=== PATIENT | female | born 1970 | race Caucasian/White ===

== ENCOUNTER 2020-10-13 07:33 | Day surgery (SDC) | payer OTHER, SELFPAY ==
[2020-10-07 15:56] VITALS: BMI 29.2
--- NOTE | 2020-10-12 08:57 | HO.ANESPROP2 ---
HPI - Anesthesia Eval Consult details Narrative: 50yo F for Colonoscopy [facility]LY [facility] Past Medical History Medical History (Updated 10/07/20 @ 15:50 by Ema West) Arthritis GERD (gastroesophageal reflux disease) History of back pain Hx of migraines Surgical History Surgical History (Updated 10/07/20 @ 15:49 by Ema West) History of back surgery History of esophagogastroduodenoscopy (EGD) S/P lumpectomy, left breast Social History Social History (Updated 10/07/20 @ 15:56 by Ema West) Alcohol intake: never Smoking Status: Current every day smoker Cigarettes Per Day: 10 Years Smoked: 30 Use of substances other than those prescribed or required for medical reasons: No Advance Directives: No Advance Directives Information Provided: No Advance Directives on File: No Meds Allergies Allergy/AdvReac Type Severity Reaction Status Date / Time oxycodone [From Percocet] Allergy Nausea and Verified 10/13/20 07:49 Vomiting Home Medications Medication Instructions Recorded Confirmed Last Taken Type ouemcrdccw-rmudaotkixxip-ornc 1 cap PO Q6H PRN 10/07/20 10/07/20 Unknown History [Fioricet] cholecalciferol (vitamin D3) 50 mcg PO DAILY 10/07/20 10/07/20 Unknown History [Vitamin D3] diazepam [Valium] 5 mg PO BID PRN 10/07/20 10/07/20 Unknown History multivitamin 1 tab PO DAILY 10/07/20 10/07/20 Unknown History omeprazole 20 mg PO DAILY 10/07/20 10/07/20 10/13/20 07:00 History sumatriptan succinate 1 tab PO DIRECTED 10/07/20 10/07/20 Unknown History Exam Exam Date and Time: October 12, 2020 0857 Height,Weight and Vital Signs: Height 5 ft 4 in Weight 77.111 kg Assessment and Plan Assessment Anesthesia Assessment: Chart Reviewed
[2020-10-13 08:08] VITALS: BP 105/48; PULSE 70; RESP 18; TEMP 36.7; O2SAT 97
[2020-10-13] MEDS: Lactated Ringers 1,000 ML 100 ML IVCONT (08:18)
--- NOTE | 2020-10-13 08:45 | MHC.SHP ---
Pre-Procedural Eval Section A The patient is an INPATIENT: No Changes since office visit: No Cold of Flu in the past 2 weeks, No New Medical Problems, No Changes in Medication and No Patient answered all questions The History & Physical has been completed within 30 days and I have reviewed it.: Yes Section B Chief Complaint: screening Allergies: Allergies Allergy/AdvReac Type Severity Reaction Status Date / Time oxycodone [From Percocet] Allergy Nausea and Verified 10/13/20 07:49 Vomiting Plan I have reviewed the history and physical and performed a pertinent physical examination on my patient. No changes have occurred unless specified.
[2020-10-13 09:13] VITALS: BP 95/37; PULSE 64; RESP 14; TEMP 36.8; O2SAT 96
--- NOTE | 2020-10-13 09:14 | PM.OP ---
Brief Operative Note Date of Service: 10/13/20 Pre-op diagnosis: screening Post-op diagnosis: same (colon polyp) Procedure: colonoscopy Surgeon: Andriy Ledesma Estimated blood loss (mL): 2 Pathology: other (polyp 80 cm) Condition: stable Disposition: PACU
[2020-10-13 09:18] VITALS: BP 91/43; PULSE 61; RESP 16; O2SAT 97
[2020-10-13 09:28] VITALS: BP 101/51; PULSE 62; RESP 16; O2SAT 98
--- NOTE | 2020-10-13 09:30 | OP_ITS ---
SURGEON: Andriy Ledesma MD INDICATIONS: Colon cancer screening. PREOPERATIVE DIAGNOSIS: POSTOPERATIVE DIAGNOSIS: PROCEDURE PERFORMED: Colonoscopy to the terminal ileum with biopsy. ESTIMATED BLOOD LOSS: COMPLICATIONS: ANESTHESIA: ASSISTANTS: SPECIMENS: MEDICATIONS: Monitored anesthesia care. DESCRIPTION OF PROCEDURE: History and physical performed. The risks and benefits of the procedure were explained to the patient. Informed consent was obtained. The patient was placed in the left lateral decubitus position. A digital rectal exam was performed and was found to be normal. The Olympus pediatric video colonoscope was introduced into the rectum and advanced to the cecum without difficulty. The cecum was identified by transillumination, palpation, and identification of the ileocecal valve. Examination was performed and the scope was removed. She tolerated the procedure well and was returned to recovery room in stable condition. FINDINGS: The terminal ileum was examined and appeared normal. The visualized colonic mucosa was normal. The quality of the prep was good. A single polyp measuring less than 5 mm was removed with biopsy forceps at 80 cm from the anal verge. No other polyps were identified. There was mild sigmoid diverticulosis. Retroflexed examination was normal. IMPRESSION: Colon polyp. RECOMMENDATION: Follow up the biopsy results. MD SOFYA Mallory/JOSE R / [id number]
[2020-10-13 09:38] VITALS: BP 114/62; PULSE 62; RESP 18; O2SAT 99
== END 2020-10-13 10:19 | disposition home or self-care (01) ==
PROVIDERS: PCP Internal Medicine; Visit Provider Internal Medicine Gastroenterology
PROC: 0DJD8ZZ Inspection of Lower Intestinal Tract, Via Natural or Artificial Opening Endoscopic (ICD-10-PCS; CPT 45378; principal; 2020-10-13 08:30)
DX: Z12.11 Encounter for screening for malignant neoplasm of colon (principal); Z83.71 Family history of colonic polyps; D12.4 Benign neoplasm of descending colon; K57.30 Diverticulosis of large intestine without perforation or abscess without bleeding; K21.9 Gastro-esophageal reflux disease without esophagitis; F17.210 Nicotine dependence, cigarettes, uncomplicated; Z79.899 Other long term (current) drug therapy
CPT/HCPCS: 45380; 88305

== ENCOUNTER 2024-05-06 14:46 | Outpatient (AMB) | payer OTHER, SELFPAY ==
--- NOTE | 2024-05-06 14:57 | A.SPINEOV_ITS ---
Intake Visit Reasons: LBP/painful to walk Intake Note: Ms. Goode is here today c/o low back pain that makes it painful to walk. 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 We did a recurrent herniated diskectomy on her in 2021. That was on the left at L4-5, her original herniation was at L4-5 at 2019. Unfortunately, about a year ago she started to develop back pain and pain shooting down into her hips in into her thighs and calves. It has a very heavy feeling when she walks. Her feet will go numb. She also has a component of back pain. She tried the mgzl-thj-lxxdaqf Tylenol/Motrin regimen with no effect. She also tried Valium but that does not work any longer either. The symptoms only seem to be getting worse. She may have a slightly weak right dorsiflexion on my exam but otherwise strength is reflexes are intact. I suspect she has a recurrent herniated disc and would like to get a lumbar MRI with and without kei 0 to evaluate this. Total amount of time spent in this visit was 20 minutes in discussion of symptoms, ordering lumbar MRI and subsequent plan of care Juan Miguel Pate MD,PhD [facility] Orders: Orders MR lumbar spine wo/w con Today M51.26 - Other intervertebral disc displacement, lumbar region Coding Level of Care Code Est Pt Level 3 (41925) Diagnoses Lumbar disc herniation M51.26
== END 2024-05-06 15:48 | disposition home or self-care (01) ==
PROVIDERS: PCP Internal Medicine; Visit Provider Physician Assistant
DX: M51.26 Other intervertebral disc displacement, lumbar region (principal)
CPT/HCPCS: 99213

== ENCOUNTER → 2024-05-06 14:46 | Outpatient (BNVA) | payer OTHER, SELFPAY | PROVIDERS: PCP Internal Medicine; Visit Provider Physician Assistant ==

== ENCOUNTER 2024-06-14 14:28 | Outpatient (AMB) | payer OTHER, SELFPAY ==
--- NOTE | 2024-06-14 14:36 | A.SPINEOV_ITS ---
Intake Visit Reasons: MRI f/u Intake Note: Ms. Rupa Box is here to F/u on MRI results. Automation And Controls Supervisor Required: No Allergies oxycodone [From Percocet] Allergy (Verified 10/13/20 07:49) Nausea and Vomiting Assessment & Plan Assessment & Plan (1) Lumbar degenerative disc disease: Code(s): M51.369 - Other intervertebral disc degeneration, lumbar region without mention of lumbar back pain or lower extremity pain Category: Medical Plan Mrs Rupa Box is well known to us from previous operations including a diskectomy at L4-5 two times, the last being in 2021, and the 1st being 2019 I believe. She did well after those surgeries but has had recurrent back pain riaz r since. Please see my last note for the specifics of her pain but primarily it centralized low back pain. We ordered a new MRI which was done at [facility] and this shows that she has severe degenerative disc disease and collapse at L4-5 with endplate edema. There is no evidence of residual nerve compression. There is some mild degenerative changes at other places but nothing as significant as L4-5. We believe this to be part of the source of her back pain. I sat down and had a lengthy discussion with her about the natural history of back pain. Traditionally this is something that Dr. Pate would treat with lumbar fusion. I showed him the imaging any believes an L4-5 oblique lumbar interbody fusion would be the best surgery of choice. However, she has had no conservative treatment to this point and we know that the patient insurance health [place] will not allow us to do surgery without at least an attempt at conservative management. Therefore I gave her a referral to PT which she is to continue as long as she can tolerate possibly up to 6 weeks would be ideal. I told her to start with Tylenol and Motrin as well and see how it goes. We can reassess. She has no interest in injections as she has had 1 in the past and only made her worse. She quit smoking so this should not be an issue for the surgery either. I will see her back in 6 weeks. Total amount of time spent in this visit was 20 minutes in discussion of symptoms, lumbar MRI imaging results and subsequent plan of care Juan Miguel Pate MD,PhD [facility] Orders: Orders PT Evaluation and Treatment Today M51.26 - Other intervertebral disc displacement, lumbar region XR lumbar spine 4V min Today M51.26 - Other intervertebral disc displacement, lumbar region Coding Level of Care Code Est Pt Level 3 (16664) Diagnoses Lumbar degenerative disc disease M51.369
== END 2024-06-14 16:06 | disposition home or self-care (01) ==
PROVIDERS: PCP Physician Assistant; Visit Provider Physician Assistant
DX: M51.369 Other intervertebral disc degeneration, lumbar region without mention of lumbar back pain or lower extremity pain (principal)
CPT/HCPCS: 99213

== ENCOUNTER 2024-06-14 14:28 | Outpatient (REF) | payer OTHER, SELFPAY | END 2024-06-14 14:29 | disposition home or self-care (01) | LOC: HO.HOSX 14:28 | PROVIDERS: PCP Physician Assistant; Visit Provider Physician Assistant | DX: Z13.89 Encounter for screening for other disorder (principal) ==

== ENCOUNTER 2024-07-26 13:16 | Outpatient (AMB) | payer OTHER, SELFPAY ==
--- NOTE | 2024-07-26 13:39 | HO.SPINEOV ---
Intake Visit Reasons: 6 weeks f/up with xrays Intake Note: Ms. 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 As you know she underwent 2 lumbar microdiskectomy but returned with severe low back pain. An MRI shows severe lumbar degenerative disc disease L4-5 with endplate degeneration. She will be a good candidate for an oblique lumbar interbody fusion. The patient takes Motrin pain control and is still able to do most tasks in her life including taking care of family members. A new bed allows her to sleep better. Physical therapy provided mild relief. We had a discussion about surgery. I told the patient is a 65% guarantee that the back pain will respond to the surgery. I also told her that I reserve a fusion option only for patients that exhausted all conservative management and can not longer tolerate the pain. She does not seem to be in the letter category and therefore decided we will hold off on surgery and she will return to my clinic if the symptoms are becoming unbearable. I spent 25 minutes in his consult to review imaging and to discuss plan of care. Andres Pate MD, PhD Spine Fellowship Trained Neurosurgeon Director, [facility] Coding Level of Care Code Est Pt Level 3 (28528) Diagnoses Lumbar degenerative disc disease M51.369
== END 2024-07-26 14:33 | disposition home or self-care (01) ==
PROVIDERS: PCP Physician Assistant; Visit Provider Neurological Surgery
DX: M51.369 Other intervertebral disc degeneration, lumbar region without mention of lumbar back pain or lower extremity pain (principal)
CPT/HCPCS: 99213

== ENCOUNTER → 2024-07-26 13:16 | Outpatient (BNVA) | payer OTHER, SELFPAY | PROVIDERS: PCP Physician Assistant; Visit Provider Neurological Surgery ==

== ENCOUNTER 2024-10-25 14:24 | Outpatient (AMB) | payer OTHER, SELFPAY ==
--- NOTE | 2024-10-25 14:26 | HO.SPINEOV ---
Vital Signs 10/25/24 14:32 Height 5 ft 4 in Weight 163 lb BMI 28.0 Intake Visit Reasons: increasing pain Intake Note: Ms. Rupa Box is here today c/o increase low back pain and leg discomfort. 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
[2024-10-25 14:32] VITALS: BMI 28.0
--- NOTE | 2024-10-25 14:48 | HO.SPINEOV ---
Vital Signs 10/25/24 14:32 Height 5 ft 4 in Weight 163 lb BMI 28.0 Intake Visit Reasons: increasing pain Allergies oxycodone [From Percocet] Allergy (Verified 10/25/24 14:33) Nausea and Vomiting Physical Exam Vital Signs: BMI result Body Mass Index 28.0 Assessment & Plan Assessment & Plan (1) Lumbar degenerative disc disease: Code(s): M51.369 - Other intervertebral disc degeneration, lumbar region without mention of lumbar back pain or lower extremity pain Category: Medical Plan Dear colleague, On 10/25/2024, I saw for follow-up Patrizia Box. She continues to suffering from daily ybbtzhqj-eo-clcgrp back pain most likely related to the severe degeneration at L4-L5. We discussed the lumbar fusion to treat her symptoms in the past. She comes in with several questions about timing of surgery and if waiting would interfere with the results. I told her that the timing for surgery is dependent on the patient herself and her symptoms. Currently, she can still manage her symptoms. Anti-inflammatory drugs do alleviate her symptoms to a certain degree. Her diabetes is well controlled. She takes Mounjaro and I told her that as long as the diabetes is well controlled, her surgical outcome should not be negatively impacted. All questions were answered satisfactorily and she will come back if she wants surgery. I spent 25 minutes in his consult for answering questions and discussing plan of care. Andres Pate MD, PhD Spine Fellowship Trained Neurosurgeon Director, [facility] Coding Level of Care Code Est Pt Level 3 (12153) Diagnoses Lumbar degenerative disc disease M51.369
--- OUTSIDE RECORDS SUMMARY | 2024-10-25 16:06 | XMS_ITS | Patient Health Record ---
Author Organization [facility] Address [address] [place] [address] Care Team Providers Care Technical Inspector Name Role Phone Iggy Pendleton MD Primary Care Provider Andriy Jamil Jr Unavailable Allergies Allergen (clinical drug ingredient) Drug/Non Drug Allergy documented on EMR Reaction Allergy Type Onset Date Status acetaminophen / oxycodone Percocet Unknown Drug Allergy Active Reason For Referral No Information Medications Medication SIG (Take, Route, Frequency, Duration) Notes Start Date End Date Status Alive Multi-Vitamin Active Omeprazole 20 MG 1 capsule Orally Onc e a day Active Fioricet PRN Active Vitamin D Active Valium PRN Active MiraLax (colon prep) 8.3 ounce ((238) grams mixed with Gatorade or Crystal Light orally begin at 5:00 p.m. the day before the procedure for 1 day 09/21/2020 Active Immunizations Vaccine Route Administration Date Status Comme nts Influenza Unknown 07/08/2020 Administered Social History Tobacco Use: Social History Observation Description Date Details (start date - stop date) Current Smoker NA - NA Tobacco Use/Smoking Question Answer Notes Patient is a current smoker How often do you smoke cigarettes? every day How many cigarettes a day do you smoke? 11-20 How soon after you wake up d o you smoke your first cigarette? 6-30 minutes Are you interested in quitting? Thinking about q uitting Alcohol Screen Question Answer Notes Did you have a drink containing alcohol in the p ast year? No Points 0 Interpretation Negative Problems Problem Type SNOMED Code ICD Code Onset Dates Problem Status W/U Status Risk Notes Problem 563930172 Colon cancer screening (Z12.11) Active confirmed Problem 546162803 Gastroesophageal reflux disease without esophagitis (K21.9) Active confirmed Plan Of Treatment Future Test Test Name Order Date UPPER GI ENDOSCOPY 02/08/2018 COLONOSCOPY 09/21/2020 Insurance Providers Payer Name Payer Address Payer Phone Subscriber Number Group Number Insured Name Patient Relationship to Insured Coverage Start Date Coverage End Date [facility] [address] [address] [place] [phone] [id number] GOMEZ GONSALES Self - patient is the insured Medical (General) History Medical History History ICD Code migraine headaches back pain acid reflux Surgical History Surgery Date(Month/Year) lumpectomy, left breast - benign
== END 2024-10-25 14:52 | disposition home or self-care (01) ==
PROVIDERS: PCP Physician Assistant; Visit Provider Neurological Surgery
DX: M51.369 Other intervertebral disc degeneration, lumbar region without mention of lumbar back pain or lower extremity pain (principal)
CPT/HCPCS: 99213

== ENCOUNTER → 2024-10-25 14:24 | Outpatient (BNVA) | payer OTHER, SELFPAY | PROVIDERS: PCP Physician Assistant; Visit Provider Neurological Surgery ==

== ENCOUNTER 2024-12-04 11:47 | Day surgery (SDC) | payer OTHER, SELFPAY ==
--- OUTSIDE RECORDS SUMMARY | 2024-11-20 15:10 | XMS_ITS ---
Author Organization [facility] Address [address] [place] [address] Care Team Providers Care Newspaper Delivery Counselor Name Role Phone Kate Roger Primary Care Provider U Andriy Ruff Jr Unavailable [phone] Allergies Allergen (clinical drug ingredient) Drug/Non Drug Allergy documented on EMR Reaction Allergy Type Onset Date Status acetaminophen / oxycodone Percocet Unknown Drug Allergy Active REASON FOR VISIT Patient presents today for stomach pain, gurgily, after bm really hurts. Medications Medication SIG (Take, Route, Frequency, Duration) Notes Start Date End Date Status Mounjaro 2.5 MG/0.5ML INJECT 2.5 MG SUBCUTANEOUSLY EVERY WEEK, ROTATE INJECTION SITES DX: E11.9 T2DM Subcutaneous for 28 Days Active Ondansetron 4 MG Oral for 15 Days Active Ibuprofen 800 MG Oral for 30 Days prn Active Atorvastatin Calcium 10 MG Oral for 90 Days Active Fioricet PRN Active Vitamin D Active Valium PRN Active Immunizations Vaccine Route Administration Date Status Comme nts Influenza Unknown 11/20/2024 Refused Social History Tobacco Use: Social History Observation Description Date Details (start date - stop date) Never Smoker NA - NA Alcohol Screen Question Answer Notes Did you have a drink containing alcohol in the p ast year? No Points 0 Interpretation Negative Tobacco Control (Standard) Question Answer Notes Tobacco use: Nonsmoker Problems Problem Type SNOMED Code ICD Code Onset Dates Problem Status W/U Status Risk Notes Problem 801505322 Gastroesophageal reflux disease, unspecified whether esophagitis present (K21.9) Active confirmed Problem 271763707 Abnormal finding s on diagnostic imaging of other parts of digestive tract (R93.3) Active confirmed Problem 176560545 Long-term curren t use of high risk medication other than anticoagulant (Z79.899) Active confirmed Vital Signs Temperature 97.7 degrees Fahrenheit 11/21/19 25 Blood pressure systolic 001 mm Hg 11/21/19 25 Blood pressure diastolic 01 mm Hg 025 Height 64 in 11/20/2024 Weight 160.8 lbs 11/20/2024 BMI 27.6 kg/m2 11/20/2024 Encounters Encounter Location Date Provider Diagnosis [facility] [address] [place] [address] 11/20/2024 Andriy Ledesma Jr Gastroesophageal reflux disease, unspecified whether esophagitis present K21.9 ; Abnormal findings on diagnostic imaging of other parts of digestive tract R93.3 and Long-term current use of high risk medication other than anticoagulant Z79.899 Assessments Encounter Date Diagnosis (ICD Code) Assessment Notes Treatment Notes Treatment Clinical Notes Section Notes 11/20/2024 Gastroesophageal reflux disease, unspecified whether esophagitis present (ICD-10 - K21.9) We discussed her symptoms today. We discussed her laboratory findings and evaluation in the emergency department as well as her abnormal upper GI series. We have recommended further evaluation with upper endoscopy and colonoscopy because of her symptoms. We discussed risks and benefits of both procedures today. She understands these and agrees to proceed. She is advised to stop Mounjaro 1 week before the procedure. 11/20/2024 Abnormal findings on diagnostic imaging of other parts of digestive tract (ICD-10 - R93.3) We discussed her symptoms today. We discussed her laboratory findings and evaluation in the emergency department as well as her abnormal upper GI series. We have recommended further evaluation with upper endoscopy and colonoscopy because of her symptoms. We discussed risks and benefits of both procedures today. She understands these and agrees to proceed. She is advised to stop Mounjaro 1 week before the procedure. 11/20/2024 Long-term current use of high risk medication other than anticoagulant (ICD-10 - Z79.899) We discussed her symptoms today. We discussed her laboratory findings and evaluation in the emergency department as well as her abnormal upper GI series. We have recommended further evaluation with upper endoscopy and colonoscopy because of her symptoms. We discussed risks and benefits of both procedures today. She understands these and agrees to proceed. She is advised to stop Mounjaro 1 week before the procedure. 11/20/2024 Other Medicine safety - Filling your prescription material was printed We discussed her symptoms today. We discussed her laboratory findings and evaluation in the emergency department as well as her abnormal upper GI series. We have recommended further evaluation with upper endoscopy and colonoscopy because of her symptoms. We discussed risks and benefits of both procedures today. She understands these and agrees to proceed. She is advised to stop Mounjaro 1 week before the procedure. Plan Of Treatment Treatment Notes Assessment Notes Other Medicine safety - Fi lling your prescription material was printed Future Test Test Name Order Date UPPER GI ENDOSCOPY 11/20/2024 COLONOSCOPY 11/20/2024 Next Appt Details Follow Up: 1 Year, Reason: Provider Name:Andriy singleton , 12/04/2024 01:00:00 PM, [address] [place] [address], [phone], Progress Notes * GOMEZ GONSALES EDOB: 1970 (54 yo F)Acc No.[id number]:11/20/2024 Progress Notes Patient:?ANTWAN GONSALES Provider:?Andriy Ledesma MD :1970???Age:54 Y???Sex:Female D ate:11/20/2024 Address:[address] [place], [place] [id number] Pcp:Mansoor Randolph Subjective: * Chief Complaints: * ???1. Patient presents today for stomach pain, gurgily, after bm really hurts.. * HPI: ???New symptom(s):? Gomez is a pleasant 54-year-old woman seen today in consultation. She complains of abdominal discomfort which is generalized across the abdomen. There is associated clammy feeling, rectal urgency, and diaphoresis. She states she belches frequently. She has had diarrhea. She feels full all the time. She was evaluated in the emergency department because of the symptoms, which have been present since October 29. Evaluation at that time included lab work which is reviewed. She also had CT scanning which we also reviewed. This showed possible colitis involving the sigmoid colon. She has no prior history of colitis. She has had no rectal bleeding. She has no other change in her bowel habits. She has lost approximately 30 pounds since she has been on Mounjaro. She previously underwent colonoscopy in September 2020 with removal of a small tubular adenoma for which 5-year follow-up was recommended. She does have a family history of colon polyps and colon cancer. We reviewed this today. * ROS:?General/Constitutional:?Change in appetite?denies.?Fatigue?denies.?ENT:?Patient denies?difficulty swallowing.?Respiratory:?Patient denies?shortness of breath.?Cardiovascular:?Patient denies?chest pain.?Gastrointestinal:?Comments?See HPI for details.?Genitourinary:?Difficulty urinating?denies.?Incontinence?denies.?Musculoskeletal:?Patient denies?muscle aches.?Skin:?Patient denies?pruritis.?Neurologic:?Patient denies?low back pain.?Psychiatric:?Patient denies?mental or physical abuse.? * Medical History:?Migraine he adaches, Back pain, Acid reflux, type II diabetes. * Surgical History:?lumpectomy , left breast - benign , back surgery x 2 . * Family History:?Father: juan carlos bañuelos, diagnosed with HTN (hypertension), Colon polyps.?Mother: alive, diagnosed with HTN (hypertension).?Maternal Grand Father: , diagnosed with Colon cancer.? Denies family hx of liver ds.? Grandfather on mothers side with colon cance.r. * Social History:?Tobacco Use:?Tobacco Control (Standard)?Tobacco use:?Nonsmoker.?Drugs/Alcohol:?Alcohol Screen?Did you have a drink containing alcohol in the past year??No,?Points?0,?Interpretation?Negative.?Miscellaneous:?Marital status: . Occupation: sales. * Medications:?Taking Valium , Notes to Pharmacist: PRN, Taking Vitamin D , Taking Fioricet , Notes to Pharmacist: PRN, Taking Ondansetron 4 MG Tablet Disintegrating Oral , Taking Mounjaro 2.5 MG/0.5ML Solution Auto-injector INJECT 2.5 MG SUBCUTANEOUSLY EVERY WEEK, ROTATE INJECTION SITES DX: E11.9 T2DM Subcutaneous , Taking Ibuprofen 800 MG Tablet Oral , Notes to Pharmacist: prn, Taking Atorvastatin Calcium 10 MG Tablet Oral , Discontinued Omeprazole 20 MG Capsule Delayed Release 1 capsule Orally Once a day , Discontinued Alive Multi-Vitamin , Discontinued MiraLax (colon prep) 8.3 ounce ((238) grams mixed with Gatorade or Crystal Light orally begin at 5:00 p.m. the day before the procedure , Medication List reviewed and reconciled with the patient * Allergies:?Percocet. Objective: * Vitals:?Wt: 160.8 lbs, Ht: 6 4 in, BMI:27.6Index, BP: 001/01 mm Hg, Temp: 97.7, Wt-k.94. * Examination: ???General Examination: ?GENERAL APPEARANCE:?in no acute distress.?HEAD:?normocephalic.?EYES:?sclera non-icteric.?ORAL CAVITY:?mucosa moist.?NECK/THYROID:?no lymphadenopathy.?SKIN:?anicteric.?HEART:?S1, S2 normal, no murmurs.?LUNGS:?clear to auscultation bilaterally.?CHEST:?normal shape and expansion.?ABDOMEN:?soft, nontender, nondistended, bowel sounds present, no organomegaly .?EXTREMITIES:?no clubbing, cyanosis, or edema.?PSYCH:?cognitive function intact.? Assessment: * Assessment: 1.?Gastroesophageal reflux d isease, unspecified whether esophagitis present - K21.9 (Primary)???2.?Abnormal findings on diagnostic imaging of other parts of digestive tract - R93.3???3.?Long-term current use of high risk medication other than anticoagulant - Z79.899??? We discussed her symptoms to day. We discussed her laboratory findings and evaluation in the emergency department as well as her abnormal upper GI series. We have recommended further evaluation with upper endoscopy and colonoscopy because of her symptoms. We discussed risks and benefits of both procedures today. She understands these and agrees to proceed. She is advised to stop Mounjaro 1 week before the procedure. Plan: * Treatment: ?Procedure: COLONOSCOPY (Ordered for 11/20/2024)* sched for 12/04/24 at 1:00 pm macmiralax 2.?Abnormal findings on diagnostic imaging of other parts of digestive tract?Procedure: UPPER GI ENDOSCOPY (Ordered for 11/20/2024)* sched for 12/04/24 at 1:00 pm mac ?Procedure: COLONOSCOPY (Ordered for 11/20/2024)* sched for 12/04/24 at 1:00 pm macmiralax 3.?Long-term current use of high risk medication other than anticoagulant?Procedure: UPPER GI ENDOSCOPY (Ordered for 11/20/2024)* sched for 12/04/24 at 1:00 pm mac ?Procedure: COLONOSCOPY (Ordered for 11/20/2024)* sched for 12/04/24 at 1:00 pm macmiralax 4.?Others? Notes: Medicine safety - Filling your prescription material was printed?? * Immunizations:? Influenza (Not administered - Refused: Patient decision) * Procedure Codes:?3017F COLOR ECTAL CA SCREEN DOC REV, 1036F TOBACCO NON-USER, G8785 BP SCR NOT PRFRM REC REASON NOS * Preventive Medicine:? ??Counseling:?Care goal follow-up plan:?Above Normal BMI Follow-up?Dietary management education, guidance, and counseling,?BMI management provided?Yes.? * Follow Up:?1 Year * * Sign off status: Completed true * Provider:?Andriy Ledesma MD Date:?0 11/20/2024 Generated for Zofia ventura/Cleo/Shari on:?11/20/2024 03:10 PM EDT History and Physical Notes * HPI (History of Present Illness) Category Sub-Category Detail Notes Category Not es New symptom(s) Gomez is a pleasant 54-year-old woman seen today in consultation. She complains of abdominal discomfort which is generalized across the abdomen. There is associated clammy feeling, rectal urgency, and diaphoresis. She states she belches frequently. She has had diarrhea. She feels full all the time. She was evaluated in the emergency department because of the symptoms, which have been present since October 29. Evaluation at that time included lab work which is reviewed. She also had CT scanning which we also reviewed. This showed possible colitis involving the sigmoid colon. She has no prior history of colitis. She has had no rectal bleeding. She has no other change in her bowel habits. She has lost approximately 30 pounds since she has been on Mounjaro. She previously underwent colonoscopy in September 2020 with removal of a small tubular adenoma for which 5-year follow-up was recommended. She does have a family history of colon polyps and colon cancer. We reviewed this today. Examination Category Sub-Category Detail Notes Category Not es General Examination GENERAL APPEARANCE: in no acute di stress HEAD: normocephalic EYES: sclera non-icteric NECK/THYROID: no lymphadenopathy HEART: S1, S2 normal, no mu rmurs CHEST: normal shape and exp ansion LUNGS: clear to auscultatio n bilaterally ABDOMEN: soft, nontender, non distended, bowel sounds present, no organomegaly SKIN: anicteric EXTREMITIES: no clubbing, cyanosi s, or edema PSYCH: cognitive function i ntact ORAL CAVITY: mucosa moist
--- OUTSIDE RECORDS SUMMARY | 2024-11-20 15:10 | XMS_ITS ---
Author Organization [facility] Address [address] [place] [address] Care Team Providers Care Chocolate Finisher Operator Name Role Phone Kate Roger Primary Care Provider U Andriy Ruff Jr [phone] Encounters Encounter Location Date Provider Diagnosis [facility] [address] [place] [address] 11/18/2024 Andriy Ledesma Jr Plan Of Treatment Next Appt Details Provider Name:Andriy singleton Jr, 12/04/2024 01:00:00 PM, [address] [place] [address] , [place], [place], [phone], Progress Notes * GOMEZ GONSALES EDOB: 1970 (54 yo F)Acc No.[id number]:11/18/2024 Patient:?ANTWAN GONSALES :1970???Age:54 Y???Sex:Female Address:[address] [place], [address] * true * Date:? Generated for Zofia ventura/Cleo/eTransmitting on:?11/20/2024 03:10 PM EDT
--- OUTSIDE RECORDS SUMMARY | 2024-11-20 15:11 | XMS_ITS ---
Author Organization [facility] Address [address] [place] [address] Care Team Providers Care Acds Block 1 Operator Name Role Phone Kate Roger Primary Care Provider U trenton Ledesma Jr, Andriy Leyva REASON FOR VISIT Appointment Encounters Encounter Location Date Provider Diagnosis [facility] [address] [place] [phone] 11/14/2024 Andriy Ledesma Jr Plan Of Treatment Next Appt Details Provider Name:Andriy singleton Jr, 12/04/2024 01:00:00 PM, [address] [place] [address] , [place], [place], [phone], Progress Notes * GOMEZ GONSALES EDOB: 1970 (54 yo F)Acc No.[id number]:11/14/2024 Patient:?ARMANDO ANTWAN FREDERICK :1970???Age:54 Y???Sex:Female Address:[address] [place] [address] [place], [address] * true * Date:? Generated for Zofia ventura/Cleo/eTransmitting on:?11/20/2024 03:10 PM EDT
--- OUTSIDE RECORDS SUMMARY | 2024-11-20 15:11 | XMS_ITS | Patient Health Record ---
Author Organization [facility] Address [address] [place] [address] Care Team Providers Care Heavy Equipment Operator/Paver Name Role Phone Kate Roger Primary Care Provider U Andriy Ruff Jr Unavailable [phone] Allergies Allergen (clinical drug ingredient) Drug/Non Drug Allergy documented on EMR Reaction Allergy Type Onset Date Status acetaminophen / oxycodone Percocet Unknown Drug Allergy Active Reason For Referral No Information Medications Medication SIG (Take, Route, Frequency, Duration) Notes Start Date End Date Status Fioricet PRN Active Vitamin D Active Mounjaro 2.5 MG/0.5ML INJECT 2.5 MG SUBCUTANEOUSLY EVERY WEEK, ROTATE INJECTION SITES DX: E11.9 T2DM Subcutaneous for 28 Days Active Ondansetron 4 MG Oral for 15 Days Active Ibuprofen 800 MG Oral for 30 Days prn Active Atorvastatin Calcium 10 MG Oral for 90 Days Active Valium PRN Active Immunizations Vaccine Route Administration Date Status Comme nts Influenza Unknown 07/08/2020 Administered Influenza Unknown 11/20/2024 Refused Social History Tobacco [...] Problem Status W/U Status Risk Notes Problem 670056426 Colon cancer screening (Z12.11) Active confirmed Problem 141264012 Abnormal finding s on diagnostic imaging of other parts of digestive tract (R93.3) Active confirmed Problem 356629244 Long-term curren t use of high risk medication other than anticoagulant (Z79.899) Active confirmed Problem 567220218 Gastroesophageal reflux disease, unspecified whether esophagitis present (K21.9) Active confirmed Vital Signs Temperature 97.7 degrees Fahrenheit 11/20/2024 Blood pressure diastolic 01 mm Hg 11/20/2024 Height 64 in 11/20/2024 Blood pressure systolic 001 mm Hg 11/20/2024 Weight 160.8 lbs 11/20/2024 BMI 27.6 kg/m2 11/20/2024 Encounters Encounter Location Date Provider Diagnosis [facility] [address] [place] [address] 11/20/2024 Andriy Ledesma Jr Gastroesophageal reflux disease, unspecified whether esophagitis present K21.9 ; Abnormal findings on diagnostic imaging of other parts of digestive tract R93.3 and Long-term current use of high risk medication other than anticoagulant Z79.899 [facility] [address] [place] [address] 11/14/2024 Andriy Ledesma Jr [facility] [address] [place] [address] 11/18/2024 Andriy Ledesma Jr Assessments Encounter Date Diagnosis (ICD Code) Assessment Notes Treatment Notes Treatment Clinical Notes Section Notes 11/20/2024 Abnormal findings on diagnostic imaging of [...] Mounjaro 1 week before the procedure. 11/20/2024 Gastroesophageal reflux disease, unspecified whether esophagitis [...] week before the procedure. Plan Of Treatment Future Test Test Name Order Date UPPER GI ENDOSCOPY 02/08/2018 COLONOSCOPY 09/21/2020 UPPER GI ENDOSCOPY 11/20/2024 COLONOSCOPY 11/20/2024 Next Appt Details Provider Name:Andriy singleton , 12/04/2024 01:00:00 PM, [address] [place] [address] , [place], [place], [phone], Insurance Providers Payer Name Payer Address Payer Phone Subscriber Number Group Number Insured Name Patient Relationship to Insured Coverage Start Date Coverage End Date [facility] [address] [place] [phone] [id number] GOMEZ GONSALES Self - patient is the insured Medical (General) History Medical History History ICD Code migraine headaches back pain acid reflux type II diabetes Surgical History Surgery Date(Month/Year) back surgery x 2 lumpectomy, left breast - benign
[2024-12-02 14:54] VITALS: BMI 28.0
[2024-12-04 12:17] VITALS: BMI 27.4
--- NOTE | 2024-12-04 12:33 | HO.ANESPROP2 ---
[facility] Active Problems Active Problems: All Active Problems Lumbar degenerative disc disease (Acute) Lumbar disc herniation (Acute) Past Medical History Medical History Type 2 diabetes mellitus Arthritis History of back pain Hx of migraines GERD (gastroesophageal reflux disease) Surgical History Surgical History History of back surgery S/P lumpectomy, left breast History of esophagogastroduodenoscopy (EGD) History of Problems with Anesthesia: No Social History Social History Are you a primary animal caretaker supervisor to a significant other at home: No Do you presently have visiting nurse or other home services: No Alcohol intake: never Patient Tobacco Use Status: Never used Tobacco Cigarettes Per Day: 10 Years Smoked: 30 Meds Allergies Allergy/AdvReac Type Severity Reaction Status Date / Time oxycodone [From Percocet] Allergy Nausea and Verified 10/25/24 14:33 Vomiting Active Medications: Current Medications Lactated Ringer's (Lr) 1,000 mls @ 100 mls/hr IVCONT .Q10H [facility] Home Medications ?Medication ?Instructions ?Recorded ?Confirmed ?Last Taken ?Type iqmdxssamk-uzxuwreqanshv-oxqxuwcv 1 cap PO Q6H PRN Headache 10/07/20 10/07/20 Unknown History 50 mg-300 mg-40 mg capsule (Fioricet) cholecalciferol (vitamin D3) 50 50 mcg PO DAILY 10/07/20 10/07/20 Unknown History mcg (2,000 unit) capsule (Vitamin D3) diazepam 5 mg tablet (Valium) 5 mg PO BID PRN Back Pain 10/07/20 10/07/20 Unknown History multivitamin 1 tab PO DAILY 10/07/20 10/07/20 Unknown History omeprazole 20 mg tablet,delayed 20 mg PO DAILY 10/07/20 10/07/20 10/13/20 07:00 History release sumatriptan succinate 100 mg tablet 1 tab PO DIRECTED 10/07/20 10/07/20 Unknown History atorvastatin 10 mg tablet 10 mg PO DAILY 10/25/24 Unknown History tirzepatide 2.5 mg/0.5 mL 2.5 mg subcut QWEEK 10/25/24 Unknown History subcutaneous pen injector (Rosas) Exam Height,Weight and Vital Signs: Height 5 ft 4 in Weight 72.5 kg Airway Mallampati Class: II TM Dist: >3cm Neck ROM: Full Denture: Upper Loose/Missing/Broken Teeth: Yes and Upper Heart: RRR Lungs: CTA Assessment and Plan Assessment Anesthesia Assessment: Anesthesia Plan Discussed and Chart Reviewed Final Anesthetic Review History of Problems with Anesthesia: No NPO: Yes ASA Class: II Final Preanesthetic Review: Meds/Allgs Chart Reviewed, Consent Obtained/Reviewed and Anes Risks/Benef Reviewed Patient Risk: Low Procedure Risk: Intermediate Anesthetic Plan Anesthetic Plan: MAC: Disposition: Standard PACU
[2024-12-04 12:36] VITALS: BP 97/52; PULSE 74; RESP 16; TEMP 36.6; O2SAT 97
--- NOTE | 2024-12-04 13:02 | MHC.SHP ---
Pre-Procedural Eval Section A - 24 Hr Update-Section A only Date of Service: 12/04/24 The patient is an INPATIENT: No Changes since office visit: No Cold of Flu in the past 2 weeks, No New Medical Problems, No Changes in Medication and No Patient answered all questions The patient has been examined within 24 hours of the surgical procedure. The History & Physical has been completed within 30 days and I have reviewed it.: Yes Section B - Complete if H&P > 30 days Chief Complaint: Abnormal findings on diagnostic imaging of other Allergies: Allergies Allergy/AdvReac Type Severity Reaction Status Date / Time oxycodone [From Percocet] Allergy Nausea and Verified 10/25/24 14:33 Vomiting Plan I have reviewed the history and physical and performed a pertinent physical examination on my patient. No changes have occurred unless specified. Time Spent With Patient Time: Total time managing care of this patient today ____ minutes.
[2024-12-04 13:03] LABS: Glucose, Whole Blood 113 mg/dL (60-115)
[2024-12-04] MEDS: Lactated Ringers 1,000 ML 100 ML IVCONT (13:04)
[2024-12-04 14:05] VITALS: BP 94/40; PULSE 78; RESP 18; TEMP 36.7; O2SAT 100
[2024-12-04 14:20] VITALS: BP 105/43; PULSE 64; RESP 18; TEMP 36.3; O2SAT 97
--- NOTE | 2024-12-04 14:51 | OP_ITS ---
DATE OF SERVICE: 12/04/2024 SURGEON: Andriy Ledesma MD INDICATIONS: 1. Gastroesophageal reflux disease. 2. Abnormal CT scan of the GI tract. PREOPERATIVE DIAGNOSIS: POSTOPERATIVE DIAGNOSIS: PROCEDURE PERFORMED: Upper endoscopy with biopsy, colonoscopy to the terminal ileum with biopsy. ESTIMATED BLOOD LOSS: COMPLICATIONS: ANESTHESIA: monitored anesthesia care. ASSISTANTS: SPECIMENS: DESCRIPTION OF PROCEDURE: A history and physical were performed. The risks and benefits of the procedure were explained to the patient and informed consent was obtained. The patient was placed in the left lateral decubitus position. The Olympus video gastroscope was introduced into the esophagus, stomach, and duodenum. Examination was performed. Then, the scope was removed. She was repositioned for colonoscopy. A digital rectal exam was performed and was found to be normal. The Olympus pediatric videocolonoscope was introduced into the rectum and advanced to the cecum. The cecum was identified by transillumination, palpation, and identification of ileocecal valve. Examination was performed. The scope was removed. She tolerated both procedures well and was returned to recovery area in stable condition. FINDINGS: Upper endoscopy, esophagus: The esophagus showed a slightly irregular EG junction. This was biopsied. There was no esophagitis. Stomach: The stomach showed no evidence of masses, ulcers, or polyps. Antral biopsies were obtained to evaluate for H pylori. Duodenum: The bulb and 2nd portion were normal. The 2nd portion biopsies were obtained to evaluate for celiac disease. Colonoscopy: The terminal ileum was normal. This was biopsied. The visualized colonic mucosa was normal. No polyps were identified. The quality of the prep was good. There was [id number] sigmoid diverticulosis. Random sigmoid biopsies were obtained. Retroflexed examination showed moderate-sized internal hemorrhoids. IMPRESSION: 1. Gastroesophageal reflux disease. 2. Normal colonoscopy. RECOMMENDATIONS: 1. Follow up the biopsy results. 2. Repeat colonoscopy is recommended in 10 years for average-risk individuals. MD SOFYA Mallory/JOSE R / [id number] MTDD
== END 2024-12-04 14:38 | disposition home or self-care (01) ==
PROVIDERS: PCP Physician Assistant; Visit Provider Internal Medicine Gastroenterology
PROC: (CPT 45380; principal; 2024-12-04 13:00)
DX: R93.3 Abnormal findings on diagnostic imaging of other parts of digestive tract (principal); R10.84 Generalized abdominal pain; K57.30 Diverticulosis of large intestine without perforation or abscess without bleeding; K64.8 Other hemorrhoids; K21.9 Gastro-esophageal reflux disease without esophagitis; K29.80 Duodenitis without bleeding; E11.9 Type 2 diabetes mellitus without complications; R63.4 Abnormal weight loss; Z68.27 Body mass index [BMI] 27.0-27.9, adult; G43.909 Migraine, unspecified, not intractable, without status migrainosus; Z79.85 Long-term (current) use of injectable non-insulin antidiabetic drugs; Z79.899 Other long term (current) drug therapy; Z88.5 Allergy status to narcotic agent; Z98.890 Other specified postprocedural states
CPT/HCPCS: 45380; 43239; 82947; 88305; 88313; 88342; J2003; J2704

== ENCOUNTER 2024-12-25 09:12 | Outpatient (REF) | payer OTHER, SELFPAY ==
[2024-12-25 09:39] LABS: Hematocrit 37.1 % (37.0-47.0); Hemoglobin 12.5 g/dl (12.0-16.0); Mean Corpuscular HGB Conc 33.7 g/dl (31.0-35.0); Mean Corpuscular Hemoglobin 28.5 pg (27.0-33.0); Mean Corpuscular Volume 84.7 fL (80.0-98.0); Mean Platelet Volume 11.3 fL (9.4-12.3); Platelet Count 186 X10*3/uL (160-400); Red Blood Count 4.38 X10*6/uL (4.20-5.50); Red Cell Distribution Width 12.5 % (11.0-16.0); White Blood Count 6.5 X10*3/uL (4.8-10.8)
--- OUTSIDE RECORDS SUMMARY | 2024-12-25 09:48 | XMS_ITS | Patient Health Record ---
Author Organization [facility] Address [address] [place] [address] Care Team Providers Care Adventure Challenge Instructor Name Role Phone Kate Roger Primary Care Provider U Andriy Ruff Jr Unavailable Allergies Allergen (clinical drug ingredient) Drug/Non Drug Allergy documented on EMR Reaction Allergy Type Onset Date Status acetaminophen / oxycodone Percocet Unknown Drug Allergy Active Results Component Value Reference Range Notes Glucose, Whole Blood Reviewed date:12/05/2024 07:15:08 AM Interpretation: Performing Lab:[facility], [address] [place] [id number] Notes/Report: Glucose, Whole Blood 113 60-115 mg/dL METER # : [id number] Pathology Reviewed date:12/09/2024 10:32:16 AM Interpretation: Performing Lab:[facility], [address] [place] [phone] Notes/Report: -- ---- Name: Gomez Gonsales Age/Sex: 54/F : 1970 Unit#: [id number] Attend Dr: Andriy Ledesma MD Re12/04/24 Status : [facility] Location: [facility] Disch: -- ---- SPEC : [id number] RECD : 12/04/24141 STATUS: SANDI NUNO NUM: [id number] EIND: 12/04/24-[address] [facility] [address]: Andriy Ledesma MD ENTERED: 12/04/24 24 SP TYPE: Surgical OTHR DR: Kate Kam ORDERED: HE Stain/15 , Gross Micro L4/5, IHC, Special st. 2/3, H. pylori, AB/PAS/3 Diagnosis A. Duodenum, biopsy: Active duodenitis with focally denuded and sloughed epithelium. B. Stomach, antrum, biopsy: Antral-type mucosa within normal limits; no Helicobacter organisms seen. C. EG junction, biopsy: - Cardiofundic-type mucosa with mild chronic inactive inflammation; no intestinal metaplasia seen. - Squamous epitheliu m within normal limits. D. Terminal ileum, biopsy: Small intestinal mucosa within normal limits. E. Colon, sigmoid, biopsy: Colonic mucosa within normal limits. Clinical History Pre-Op Dx: Screening Post-Op Dx: GERD, normal colon Microscopic Description A-E. Microscopic sections examined. No metaplastic changes are seen, supported by AB/PAS stains (A, B and C); no Helicobacter organisms are seen, supported by H. pylori immunostain (B). Material Received A. Duodenum biopsy B. Antrum biopsy C. EG junction biopsy D. External ileum biopsy E. Sigmoid biopsy Gross Description Received in five parts. Part A: Received in formalin labeled ?duodenal? are 2 barahona-pink irregular tissue fragments measuring 0.25 and 0.35 cm, submitted in toto in a cassette labeled A. Part B: Received in formalin labeled ?antrum? is a 0.3 cm barahona-pink irregular tissue fragment, submitted in toto in a cassette labeled B. CONTINUED ON NEXT PAGE -- ---- Name: Gomez Gonsales Age/Sex: 54/F : 1970 Unit#: [id number] Attend Dr: Andriy Ledesma MD Re12/04/24 Status : [facility] Location: [facility] Disch: -- ---- SPEC : [id number] RECD : 12/04/24-1419 STATUS: OSCARIlda YAAKOV NUM: [id number] ENID: 12/04/24-[address] [facility] [address]: Andriy Ledesma MD ENTERED: 12/04/24-14 24 SP TYPE: Surgical OTHR DR: Kate Kam PA ORDERED: HE Stain/15 , Gross Micro L4/5, IHC, Special st. 2/3, H. pylori, AB/PAS/3 Gross Description (Continued) Part C: Received in formalin labeled ?EG junction? are 2 barahona-pink irregular and rectangular tissue fragments measuring 0.1 and 0.35 cm, submitted in toto a cassette labeled C. Part D: Received in formalin labeled ?external (sic) ileum bx is a 0.3 cm barahona-pink irregular tissue fragment, submitted in toto in a cassette labeled D. Part E: Received in formalin labeled ?sigmoid biopsy? are 2 barahona-pink irregular tissue fragments each measuring 0.35 cm, submitted in toto in a cassette labeled E. CEDS Special studies ordered and performed: Immunostain for H. pylori on B; AB/PAS stains on A, B and C Copies To: Andriy Ledesma MD [facility] [address] [place] [address] Kate Kam [place], [place] [id number] -- ---- Signed (signature on file) Martin Wright MD 12/06/24 1048 -- ---- END OF REPORT Complete Blood Count no Diff (Not yet reviewed by provider) Interpretation: Performing Lab:[facility], [address] [place] [phone] Notes/Report: White Blood Count 6.5 4.8-10.8 X10*3/uL Red Blood Count 4.38 4.20-5.50 X10*6/uL Hemoglobin 12.5 12.0-16.0 g/dl Hematocrit 37.1 37.0-47.0 % Mean Corpuscular Volume 84.7 80.0-98.0 fL Mean Corpuscular Hemoglobin 28.5 27.0-33.0 pg Mean Corpuscular HGB Conc 33.7 31.0-35.0 g/dl Red Cell Distribution Width 12.5 11.0-16.0 % Platelet Count 186 160-400 X10*3/uL Mean Platelet Volume 11.3 9.4-12.3 fL NRBC Pct Auto 0.0 0.0-0.2 /100WBC NRBC Abs Auto 0.000 0.0-0.012 X10*3/uL Reason For Referral No Information Medications Medication SIG (Take, Route, Frequency, Duration) Notes Start Date End Date Status Fioricet PRN Active Ondansetron 4 MG Oral for 15 Days Active Dicyclomine HCl 20 MG 1 tablet Orally 2- 4 times a day 12/24/2024 Active Mounjaro 2.5 MG/0.5ML INJECT 2.5 MG SUBCUTANEOUSLY EVERY WEEK, ROTATE INJECTION SITES DX: E11.9 T2DM Subcutaneous for 28 Days Active Ibuprofen 800 MG Oral for 30 Days prn Active Valium PRN Active Vitamin D Active Omeprazole 20 MG 1 Orally Twice daily for 30 days 12/09/2024 Active Atorvastatin Calcium 10 MG Oral for 90 Days Active Immunizations Vaccine Route Administration Date Status [...] Problem Status W/U Status Risk Notes Problem 447451212 Colon cancer screening (Z12.11) Active confirmed Problem 243912226 Abnormal finding s on diagnostic imaging of other parts of digestive tract (R93.3) Active confirmed Problem 950676552 Long-term curren t use of high risk medication other than anticoagulant (Z79.899) Active confirmed Problem 344660300 Gastroesophageal reflux disease, unspecified whether esophagitis present (K21.9) Active confirmed Vital Signs Temperature 97.7 degrees Fahrenheit 11/20/2024 Blood pressure diastolic 01 mm Hg 11/20/2024 Height 64 in 11/20/2024 Blood pressure systolic 001 mm Hg 11/20/2024 Weight 160.8 lbs 11/20/2024 BMI 27.6 kg/m2 11/20/2024 Encounters Encounter Location Date Provider Diagnosis [facility] [address] [place] [phone] 12/04/2024 Andriy Ledesma Jr Chronic GERD K21.9 and Abn findings-GI tract R93.3 [facility] [address] [place], [place] [address] [address] 11/20/2024 Andriy Ledesma Jr Gastroesophageal reflux disease, unspecified whether esophagitis present K21.9 ; Abnormal findings on diagnostic imaging of other parts of digestive tract R93.3 and Long-term current use of high risk medication other than anticoagulant Z79.899 [facility] [address] [place], [place] [address], [place] [address] 11/14/2024 Andriy Ledesma Jr [facility] [address] [place] [address], [place] [address] 11/18/2024 Andriy Ledesma Jr [facility] [address] [place], [place] [address], [place] [address] 12/09/2024 Andriy Ledesma Jr [facility] [address] [place] [address] 12/10/2024 Andriy Ledesma Jr [facility] [address] [place] [phone] 12/23/2024 Andriy Ledesma Jr Abdominal pain R10.9 Assessments Encounter Date Diagnosis (ICD Code) Assessment Notes Treatment Notes Treatment Clinical Notes Section Notes 12/04/2024 Abn findings-GI tract (ICD-10 - R93.3) 12/04/2024 Chronic GERD (ICD-10 - K21.9) 11/20/2024 Abnormal findings on diagnostic imaging of [...] stop Mounjaro 1 week before the procedure. 12/23/2024 Abdominal pain (ICD-10 - R10.9) 11/20/2024 Long-term current use of high risk [...] week before the procedure. Plan Of Treatment Pending Test Test Name Order Date LIVER PROFILE 12/23/2024 LIPASE 12/23/2024 CBC w/o DIFF 12/23/2024 TSH REFLEX FREE T4 12/23/2024 Complete Blood Count no Diff 12/25/2024 Future Test Test Name Order Date UPPER GI ENDOSCOPY 02/08/2018 COLONOSCOPY 09/21/2020 UPPER GI ENDOSCOPY 11/20/2024 COLONOSCOPY 11/20/2024 Insurance Providers Payer Name Payer Address Payer Phone Subscriber Number Group Number Insured Name Patient Relationship to Insured Coverage Start Date Coverage End Date [facility] [address] [place] [address] [id number] GOMEZ GONSALES Self - patient is the insured Medical (General) History Medical History History ICD Code migraine headaches back pain acid reflux type II diabetes Surgical History Surgery Date(Month/Year) back surgery x 2 lumpectomy, left breast - benign
--- OUTSIDE RECORDS SUMMARY | 2024-12-25 09:48 | XMS_ITS ---
Author Organization [facility] Address [address] [place] [address] Care Team Providers Care Route Delivery Clerk Name Role Phone Kate Roger Primary Care Provider Andriy Phillips Jr REASON FOR VISIT pt given previous message. Encounters Encounter Location Date Provider Diagnosis [facility] [address] [place] [address] 12/10/2024 Andriy Ledesma Jr Plan Of Treatment No Information Progress Notes * GOMEZ GONSALES EDOB: 1970 (54 yo F)Acc No.[id number]:12/10/2024 Patient:?ARMANDO FREDERICK ANTWAN Rodriguez :1970???Age:54 Y???Sex:Female Address:[address] [place] [address], [address] * true * Date:? Generated for Zofia ventura/Cleo/eTransmitting on:?12/25/2024 09:47 AM EDT
--- OUTSIDE RECORDS SUMMARY | 2024-12-25 09:48 | XMS_ITS ---
Author Organization [facility] Address [address] [place] [address] Care Team Providers Care Hand Frame Surgical Elastic Knitter Name Role Phone Kate Roger Primary Care Provider U trenton Ledesma Jr, Andriy Leyva [phone] REASON FOR VISIT path Medications Medication SIG (Take, Route, Fr equency, Duration) Notes Start Date End Date Status Omeprazole 20 MG 1 Orally Twice daily for 30 days 12/09/2024 Active Encounters Encounter Location Date Provider Diagnosis [facility] [address] [place] [address] 12/09/2024 Andriy Ledesma Jr Plan Of Treatment Medication Medication Name Sig Start Date Stop Date Notes Omeprazole 20 MG 1 Orally Twice daily for 30 days 12/10/19 25 Progress Notes * GOMEZ GONSALES EDOB: 1970 (54 yo F)Acc No.[id number]:12/09/2024 Patient:?ARMANDO FREDERICK ANTWAN Rodriguez :1970???Age:54 Y???Sex:Female Address:[address] [place] [address], [address] * Refills? Start Omeprazole Capsule Delayed Release, 20 MG, Orally, 60, 1, Twice daily, 30 days, Refills=1 * true * Date:? Generated for Zofia ventura/Cleo/eTransmitting on:?12/25/2024 09:48 AM EDT
--- OUTSIDE RECORDS SUMMARY | 2024-12-25 09:48 | XMS_ITS ---
Author Organization [facility] Address [address] [place] [address] Care Team Providers Care Wing Coverer Name Role Phone Kate Roger Primary Care Provider Andriy Phillips Jr [phone] REASON FOR VISIT not feeling well Medications Medication SIG (Take, Route, Fr equency, Duration) Notes Start Date End Date Status Dicyclomine HCl 20 MG 1 tablet Orally 2- 4 times a day 12/24/2024 Active Encounters Encounter Location Date Provider Diagnosis [facility] [address] [place] [address] 12/23/2024 Andriy Ledesma Jr Abdominal pain R10.9 Assessments Encounter Date Diagnosis (ICD Code) Assessment Notes Treatment Notes Treatment Clinical Notes Section Notes 12/23/2024 Abdominal pain (ICD-10 - R10.9) Plan Of Treatment Medication Medication Name Sig Start Date Stop Date Notes Dicyclomine HCl 20 MG 1 tablet Orally 2-4 times a day 01/2025 Pending Test Test Name Order Date LIVER PROFILE 12/23/2024 LIPASE 12/23/2024 CBC w/o DIFF 12/23/2024 TSH REFLEX FREE T4 12/23/2024 Progress Notes * GOMEZ GONSALES EDOB: 1970 (54 yo F)Acc No.[id number]:12/23/2024 Patient:?ARMANDO ANTWAN FREDERICK :1970???Age:54 Y???Sex:Female Address:[address] [place] [address], [place], [address] * Refills? Start Dicyclomine HCl Tablet, 20 MG, Orally, 120, 1 tablet, 2-4 times a day, Refills=6 Subjective: * Chief Complaints: * ???Not feeling well * Medical History:? * Surgical History:? * Hospitalization/Major Diagno stic Procedure:? * Medications:? Objective: * Vitals:? * Physical Examination:? Assessment: * Assessment: 1.?Abdominal pain - R10.9 (P rimary)??? Plan: * Treatment: 2.?Others? Start Dicyclomine HCl Tablet, 20 MG, 1 tablet, Orally, 2-4 times a day, 120, Refills 6.?? * Procedure Codes:? * true * Date:? Generated for Zofia ventura/Cleo/Radhasmitting on:?12/25/2024 09:47 AM EDT
[2024-12-25 10:11] LABS: Alanine Aminotransferase 24 U/L (0-31); Albumin Level 3.9 g/dL (3.5-5.0); Alkaline Phosphatase 73 U/L (39-117); Aspartate Amino Transferase 14 U/L (5-31); Bilirubin Direct 0.3 mg/dL (0.0-0.5); Bilirubin Total 0.7 mg/dL (0.0-1.0); Lipase 24 U/L (8-78); Total Protein 6.5 g/dL (6.5-8.0)
[2024-12-25 10:26] LABS: TSH reflex Free T4 1.38 uIU/mL (0.32-4.0)
== END 2024-12-25 09:13 | disposition home or self-care (01) ==
LOC: HO.LAB 09:12
PROVIDERS: PCP Physician Assistant; Visit Provider Internal Medicine Gastroenterology
DX: R10.9 Unspecified abdominal pain (principal)
CPT/HCPCS: 36415; 80076; 83690; 84443; 85027

== ENCOUNTER 2025-03-14 14:03 | Outpatient (AMB) | payer OTHER, SELFPAY ==
--- OUTSIDE RECORDS SUMMARY | 2025-03-14 14:05 | XMS_ITS | Encounter Summary ---
Author Organization [facility] Address [address] [facility] [address] [place] [address] Phone Care Team Providers Care Flanging Roll Operator Name Role Phone Sanjay Liu MD Unavailable [phone] Iggy Pendleton MD Unavailable [phone] Andriy Ledesma MD Unavailable Gill Fontaine [facility] Primary Care Provider Elysia Alvarenga [facility] Primary Care Provid er Kate Kam Primary Care Provider Encounter Details Date Type Department Care Team (Late st Contact Info) Description 07/14/2021 Ancillary Orders [facility],Outside Imaging [address] [place], [place] [phone] System, Provider Not In, [facility] [address] [address] Social History Tobacco Use Types Packs/Day Years Used Date Smoking Tobacco: Every Day Cigarettes 1 31 Smokeless Tobacco: Never Alcohol Use Standard Drinks/Week Comments No 0 (1 standard drink = 0.6 oz pur e alcohol) Child or Family Care Answer Date Record ed Do you have problems with on e of the following making it difficult for you to work, study, or receive health care? No 06/04/2021 Education Answer Date Recorded Are you interested in help w ith more adult education (for example, completing high school, GED, job training, learning the French language, technical skills, or developing parenting skills)? No 06/04/2021 Are you concerned about learning? Not on file 06/04/2021 Not on file 06/04/2021 Not on file 06/04/2021 Food Answer Date Recorded Within the past 6 months we worried whether our food would run out before we got money to buy more. Never True 06/04/2021 Within the past 6 months the food we bought just didn't last and we didn't have enough money to get more. Never True Paying for Meds Answer Date Recorded Do you have trouble paying for medicines? No 06/04/2021 Paying Utility Bills Answer Date Record ed Do you have trouble paying your heating or elect ricity bill? No 06/04/2021 Transportation Answer Date Recorded Has the lack of transportati on kept you from medical appointments or from getting medications? No 06/04/2021 Comments Unknown Sex and Gender Information Value Date Recorded Sex Assigned at Female 01/12/2022 9:19 AM EDT Legal Sex Female 9:34 PM EDT Gender Identity Female 01/12/2022 9:19 AM EDT Sexual Orientation Straight 01/12/2022 9: 19 AM EDT documented as of this encounter Plan of Treatment Not on file documented as of this encounter Results * XR Pelvis Outside (No Interpretation) (06/08/2021 12:05 AM EDT) Narrative SYSTEMGENERATED, DOCUMENTATION - 07/14/2021 8:51 AM EST This study is for PACS storage only and not for interpretation. us Provider Not In System PhD IMG OUTSIDE IMAGING W /OUT INTERPRETATION Final Result documented in this encounter Visit Diagnoses Not on filedocumented in this encounter Additional Health Concerns Assessment Noted Time PHQ-2 Depression Total Score: 0 06/04/20 21 10:20 AM EDT documented as of this encounter Care Teams Flanging Roll Operator Relationship Specialty Start Date End Date Glil Fontaine CNP [address] [place] [address] PCP - General Internal Medicine 05/26/21 07/17/23 Elysia Alvarenga CNP [address] [place] [address], [address] [place] [address] [email or web address] PCP - General Family Medicine 07/18/23 06/06/24 Kate Kam PA [address] [facility] [address] [place] [address] PCP - General Physician Peanut Blancher 06/07/24 Sanjay Liu MD [address] [facility] [address] [place] [address] Obstetrics and Gynecology 05/14/20 Iggy Pendleton MD [address] [place] [address] [email or web address] Insurance Assigned Provider 05/30/20 03/26/23 Andriy Ledesma MD [address] [place] [phone] Gastroenterology 04/07/21 documented as of this encounter Additional Source Comments The information contained in this document represents components of the legal health record. It is not the complete legal health record.[facility]
--- OUTSIDE RECORDS SUMMARY | 2025-03-14 14:05 | XMS_ITS | Patient Health Record ---
Author Organization [facility] Address [address] [place] [address] Care Team Providers Care [employer] Truck Driver Name Role Phone Kate Roger Primary Care Provider U trenton Ledesma Jr Andriy Unavailable Allergies Allergen (clinical drug ingredient) Drug/Non Drug Allergy documented on EMR Reaction Allergy Type Onset Date Status acetaminophen / oxycodone Percocet Unknown Drug Allergy Active Results Component Value Reference Range Notes Glucose, Whole Blood Reviewed date:12/05/2024 07:15:08 AM Interpretation: Performing Lab:[facility], [address] [place] [phone] Notes/Report: Glucose, Whole Blood 113 60-115 mg/dL METER # : [id number] Pathology Reviewed date:12/09/2024 10:32:16 AM Interpretation: Performing Lab:[facility], [address] [place] [phone] Notes/Report: Complete Blood Count no Diff Reviewed date:12/26/2024 09:51:33 AM Interpretation: Performing Lab:[facility], [address] [place] [phone] Notes/Report: White Blood Count 6.5 4.8-10.8 X10*3/uL [...] /100WBC NRBC Abs Auto 0.000 0.0-0.012 X10*3/uL Liver Panel Reviewed date:12/26/2024 09:51:28 AM Interpretation: Performing Lab:[facility], [address] [place] [phone] Notes/Report: Bilirubin Total 0.7 0.0-1.0 mg/dL Bilirubin Direct 0.3 0.0-0.5 mg/dL Aspartate Amino Transferase 14 5-31 U/L Alanine Aminotransferase 24 0-31 U/L Total Protein 6.5 6.5-8.0 g/dL Albumin Level 3.9 3.5-5.0 g/dL Alkaline Phosphatase 73 39-117 U/L Lipase Reviewed date:12/26/2024 09:51:24 AM Interpretation: Performing Lab:[facility], [address] [place] [phone] Notes/Report: Lipase 24 8-78 U/L TSH reflex Free T4 Reviewed date:12/26/2024 09:51:18 AM Interpretation: Performing Lab:[facility], [address] [place] [phone] Notes/Report: TSH reflex Free T4 1.38 0.32-4.0 uIU/mL Reason For Referral No Information Medications Medication [...] 20 MG 1 Orally Twice daily for 90 days Active Atorvastatin Calcium 10 MG Oral for [...] Problem Status W/U Status Risk Notes Problem 591030556 Colon cancer screening (Z12.11) Active confirmed Problem 252643833 Abnormal finding s on diagnostic imaging of other parts of digestive tract (R93.3) Active confirmed Problem 170610738 Long-term curren t use of high risk medication other than anticoagulant (Z79.899) Active confirmed Problem 653712997 Gastroesophageal reflux disease, unspecified whether esophagitis present (K21.9) Active confirmed Vital Signs Temperature 97.7 degrees Fahrenheit 11/20/2024 Blood pressure diastolic 01 mm Hg 11/20/2024 Height 64 in 11/20/2024 Blood pressure systolic 001 mm Hg 11/20/2024 Weight 160.8 lbs 11/20/2024 BMI 27.6 kg/m2 11/20/2024 Encounters Encounter Location Date Provider Diagnosis [facility] [place] [address] [place] [id number] 12/04/2024 Andriy Ledesma Jr Chronic GERD K21.9 and Abn findings-GI tract R93.3 [facility] [address] [place] [id number] 11/20/2024 Andriy Ledesma Jr Gastroesophageal reflux disease, unspecified whether esophagitis present K21.9 ; Abnormal findings on diagnostic imaging of other parts of digestive tract R93.3 and Long-term current use of high risk medication other than anticoagulant Z79.899 [facility] [address] [place] [phone] 11/14/2024 Andriy Ledesma Jr [facility] [address] [place] [phone] 11/18/2024 Andriy Ledesma Jr [facility] [address] [place] [phone] 12/09/2024 Andriy Ledesma [facility] [address] [place] [phone] 12/10/2024 Andriy Richardord [facility] [address] [place] [phone] 12/23/2024 Andriy Richardord Abdominal pain R10.9 [facility] [address] [place], [place] [address] 12/26/2024 Andriy Baltazar [facility] [address] [place] [phone] 02/05/2025 Andriyjoanne Ledesma Jr Assessments Encounter Date Diagnosis (ICD [...] DIFF 12/23/2024 TSH REFLEX FREE T4 12/23/2024 Future Test Test Name Order Date UPPER GI ENDOSCOPY 02/08/2018 COLONOSCOPY 09/21/2020 UPPER GI ENDOSCOPY 11/20/2024 COLONOSCOPY 11/20/2024 Insurance Providers Payer Name Payer Address Payer Phone Subscriber Number Group Number Insured Name Patient Relationship to Insured Coverage Start Date Coverage End Date [facility] [address] [facility] [place] [phone] [id number] GOMEZ GONSALES Self - patient is the insured Medical (General) History Medical History History ICD Code migraine headaches back pain acid reflux type II diabetes Surgical History Surgery Date(Month/Year) back surgery x 2 lumpectomy, left breast - benign
--- OUTSIDE RECORDS SUMMARY | 2025-03-14 14:05 | XMS_ITS | Patient Health Record ---
Author Organization [facility] Address [address] [facility] [place] [address] Care Team Providers Care Full Stack Engineer Name Role Phone Iggy Pendleton MD Primary Care Provider Rebecca Watson Unavailable [phone] Allergies Allergen (clinical drug ingredient) Drug/Non Drug Allergy documented on EMR Reaction Allergy Type Onset Date Status acetaminophen / oxycodone Percocet sick Drug Allergy Active Reason For Referral No Information Medications Medication SIG (Take, Route, Frequency, Duration) Notes Start Date End Date Status Naprosyn 375 MG 1 tablet Orally Twic e a day; Duration: 30 day(s) 12/28/2015 Not-Taking Cephalexin 500 MG 1 capsule Orally Twi ce a day Active Vitamin D 1000 UNIT 1 tablet Orally Once a day Active Fioricet Active traMADol HCl 50 mg 1 tablet as needed f or pain Orally every 6 hrs prn pain 08/17/2012 Not-Taking Omeprazole 20 MG 1 capsule Orally Onc e a day Active Gabapentin 100 MG TAKE ONE CAPSULE BY MOUTH 3 TIMES A DAY Oral; Duration: 03/07/2016 Not-Taking Culturelle Immunity Support 10 B CELL as directed Orally Once daily; Duration: 14 day(s) 10/13/2016 Active Nystatin 486282 UNIT/GM 1 application to affected area Externally Twice a day; Duration: 30 day(s) 08/30/2013 Not-Taking Night Splint AFO - L1930 as directed 06/20/2017 Active Cyclobenzaprine HCl 10 mg 1 tablet Orall y Three times a day PRN muscle spasm 12/20/2011 Not-Taking Valium 5mg 1 tablet Orally bid prn; Duration: 14 day(s) 08/24/2012 Active Motrin 200MG FOUR AT A TIME Orall y PRN Not-Taking Keflex 500 mg 1 capsule Orally Fou r times a day; Duration: 10 day(s) 10/13/2016 Active Nicoderm CQ 21 MG/24HR 1 patch to skin Transdermal Once a day (dispense 1 box); Duration: 14 day(s) 05/30/2014 Not-Taking Triamcinolone Acetonide 0.1 % 1 application to affected area Externally Twice a day; Duration: 10 days 10/13/2016 Active ProAir HFA 108 (90 Base) MCG/ACT 2 puffs as needed Inhalation every 4 hrs; Duration: 30 day(s) 09/24/2014 Not-Taking Fioricet 50-325-40 MG TAKE 1 TABLET BY M OUTH EVERY 8 HOURS NEEDED FOR HEADACHE; Duration: 10 Active predniSONE 20 mg 3 tabs for 3 days, 2 tabs for 2 days, 1 tab for 2 days with food or milk Orally Once a day; Duration: 6 days 09/24/2014 Not-Taking Social History Tobacco Use: Social History Observation Description Date Details (start date - stop date) Current Smoker NA - NA Tobacco Use/Smoking Question Answer Notes Are you a: current smoker When did you start smoking? 32 years ago How often do you smoke cigarettes? every day How many cigarettes a day do you smoke? 11-20 How soon after you wake up d o you smoke your first cigarette? 6-30 minutes Are you interested in quitting? Thinking about q uitting Tobacco use other than smoking: Question Answer Notes Are you an other tobacco user? No Problems No Known Problems Plan Of Treatment No Information Insurance Providers Payer Name Payer Address Payer Phone Subscriber Number Group Number Insured Name Patient Relationship to Insured Coverage Start Date Coverage End Date [employer] [address] [place] [address] [id number] Jeison Montesinos Spouse - patient is the spouse of the insured Medical (General) History Medical History History ICD Code Back,Hip,and Knee pain Surgical History Surgery Date(Month/Year) lumpectomy 09/2014
--- NOTE | 2025-03-14 14:59 | HO.SPINEOV ---
Intake Visit Reasons: discuss surgery Intake Note: Ms. Rupa Box is here today to Discuss Surgery. 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 As you know she suffering from chronic low back pain with MRI showing severe lumbar degenerative disc disease L4-5. She is status post 2 times lumbar microdiskectomies. She states that the back pain is progressive. It interferes with normal daily activity such as vacuum, bending forward. She is leaning towards surgery. She had more questions which were answered. She is thinking about and a September. She will return to my clinic in August to make a final decision and to schedule a surgical date. I spent 15 minutes in his consult answering questions Andres Pate MD, PhD Spine Fellowship Trained Neurosurgeon Director, [facility] Coding Level of Care Code Est Pt Level 2 (87407) Diagnoses Degeneration of intervertebral disc of lumbar region with discogenic back pain M51.360 Disc-related pain type: discogenic back pain only
== END 2025-03-14 16:11 | disposition home or self-care (01) ==
LOC: HO.HNS 14:04
PROVIDERS: PCP Physician Assistant; Visit Provider Neurological Surgery
DX: M51.360 Other intervertebral disc degeneration, lumbar region with discogenic back pain only (principal)
CPT/HCPCS: 99212